=== PATIENT | female | born 1985 | race American Indian/Alaskan Native ===

== ENCOUNTER 2022-08-06 10:06 | Emergency (ER) | payer MEDICAID ==
--- NOTE | 2022-08-06 10:55 | Emergency Department Report ---
ED Lower Extremity HPI - General Stated Complaint: LEFT ANKLE PAIN Time Seen by Provider: 08/06/22 10:54 Source: patient Mode of arrival: Ambulatory Limitations: No Limitations - History of Present Illness Initial Comments: Patient is a 36-year-old female that comes to the emergency room with chronic left ankle pain. This is been going on for years. She has no new fall or tra abdelrahman. She is ambulatory to the ER. She is taking nothing for pain prior to arrival in the ER. She has not seen her primary care doctor. Patient's blood pressure noted to be elevated. She denies chest pain or shortness of breath. She states she is just in pain. Patient reports that she is taking her vitamins for her previous gastric bypass surgery. She is also on blood pressure medicine. She states that she takes it daily. -: month(s) Severity scale (0 -10): 3 Improves With: nothing Worsens With: weight bearing, movement - Related Data Allergies Allergy/AdvReac Type Severity Reaction Status Date / Time No Known Allergies Allergy Verified 08/06/22 10:56 ED Review of Systems ROS: Stated complaint: LEFT ANKLE PAIN Other details as noted in HPI Comment: All other systems reviewed and negative ED Past Medical Hx - Past Medical History Previous Medical History?: Yes Hx Hypertension: Yes Additional medical history: Obese - Surgical History Past Surgical History?: Yes Additional Surgical History: Gastric bypass surgery - Family History Family history: no significant - Social History Smoking Status: Never Smoker Substance Use Type: None ED Physical Exam - General Limitations: No Limitations General appearance: alert, in no apparent distress - Head Head exam: Present: atraumatic, normocephalic - Eye Eye exam: Present: normal appearance - ENT ENT exam: Present: mucous membranes moist - Neck Neck exam: Present: normal inspection - Respiratory Respiratory exam: Present: normal lung sounds bilaterally. Absent: respiratory distress - Cardiovascular Cardiovascular Exam: Present: regular rate, normal rhythm. Absent: systolic murmur, diastolic murmur, rubs, gallop - GI/Abdominal GI/Abdominal exam: Present: soft, normal bowel sounds - Extremities Exam Extremities exam: Present: normal inspection - Back Exam Back exam: Present: normal inspection - Neurological Exam Neurological exam: Present: alert, oriented X3 - Psychiatric Psychiatric exam: Present: normal affect, normal mood - Skin Skin exam: Present: warm, dry, intact, normal color. Absent: rash ED Course Vital Signs 08/06/22 10:50 Temperature 97.5 F L Pulse Rate 80 Respiratory 16 Rate Blood Pressure 177/111 [Left] O2 Sat by Pulse 100 Oximetry ED Lower Extremity MDM - Medical Decision Making Patient comes to the emergency room with chronic ankle pain. She states that she has been to several doctors and nobody will help her. When I suggested Motrin she states that she cannot take that because of her gastric bypass surgery. She was suggestive of wanting opiates. I told her that opiates would not be good given her gastric bypass surgery and its known side effect of constipation/ileus. We have discussed PT, OT, functional pain specialist, chronic pain specialist. She was cooperative during my exam but she could tell that she was seeking medications for her pain relief. I discharged her with chronic pain management and functional medicine referrals. However, the patient got angry at the nurses due to the wait in receiving her discharge paperwork and she left the ER without her referrals. Vital Signs (72 hours) 08/06/22 10:50 Temperature 97.5 F L Pulse Rate 80 Respiratory 16 Rate Blood Pressure 177/111 [Left] O2 Sat by Pulse 100 Oximetry - Differential Diagnosis Chronic pain Critical care attestation.: If time is entered above; I have spent that time in minutes in the direct care of this critically ill patient, excluding procedure time. ED Disposition Clinical Impression: Ankle pain, chronic, Elevated blood pressure reading, Drug-seeking behavior Disposition: 01 HOME / SELF CARE / HOMELESS Is pt being admited?: No Does the pt Need Aspirin: No Condition: Stable Instructions: Authorized Agent-Controlled Analgesia, Joint Pain, [id number] Additional Instructions: follow up as we discussed referrals below Monitor your blood pressure it was elevated today. [facility] [id number] FUNCTIONAL MED NEW CONCEPT Referrals: MILENA SHIPMAN MD [Staff Physician] - 3-5 Days Forms: Work/School Release Form(ED) Time of Disposition: 11:02
[2022-08-06 10:56] VITALS: BP 177/111
== END 2022-08-06 11:39 | disposition home or self-care (01) ==
LOC: ED 10:06
DX: M25.572 Pain in left ankle and joints of left foot (principal); G89.29 Other chronic pain; R03.0 Elevated blood-pressure reading, without diagnosis of hypertension; I10 Essential (primary) hypertension; Z72.89 Other problems related to lifestyle; Z79.899 Other long term (current) drug therapy
CPT/HCPCS: 99282